=== PATIENT | male | born 1995 | race Caucasian/White ===

== ENCOUNTER 2018-03-18 18:42 | Emergency (ER) | payer BC ==
[2018-03-18] MEDS ORDERED: LIDOCAINE 1% 50 ML VIAL INJ ONE (18:44)
[2018-03-18] MEDS ORDERED: CHLORHEXIDINE GLUCONATE 4 % 15 ML UD TOP ONE (18:46)
[2018-03-18] MEDS ORDERED: NEOMYCIN-BACITRACIN-POLYMYXIN 0.9 GM UD TOP ONE (19:32)
--- NOTE | 2018-03-18 19:41 | RAD ---
EXAM DESCRIPTION: Thumb,Right CLINICAL HISTORY: 23 years Male, laceration COMPARISON: None. FINDINGS: No fracture or dislocation. Soft tissue irregularity/laceration with overlying bandage material. Electronically signed by: Juan Pastor MD 03/18/2018 7:40 PM CDT
--- NOTE | 2018-03-18 19:48 | ED.PDOC ---
History of Present Illness - General Chief Complaint: Laceration Stated Complaint: laceration thumb right Time Seen by Provider: 03/18/18 18:44 Source: patient - History of Present Illness Initial Comments: Gurwinder Samson 23 y/o male stated while doing work on his car his right hand slipped off and right thumb struck sharp oedge of metal that he was working on and causing laceration on his right thumb with pain and bleeding afterwards.His Tdap UTD-2017. Timing/Duration: just prior to arrival Severity: moderate Location: hands - right thumb Improving Factors: rest Worsening Factors: movement Associated Symptoms: other - Pain/bleeding wound Allergies/Adverse Reactions: Allergies NO KNOWN ALLERGY Allergy (Verified 03/18/18 19:01) Home Medications: Ambulatory Orders Cephalexin 1,000 mg PO BID 7 Days #30 cap 03/18/18 Review of Systems - Review of Systems Constitutional: States: no symptoms reported EENTM: States: no symptoms reported Respiratory: States: no symptoms reported Cardiology: States: no symptoms reported Gastrointestinal/Abdominal: States: no symptoms reported Genitourinary: States: no symptoms reported Skin: States: see HPI Past Medical History (General) - Patient Medical History Hx Stroke: No Hx Congestive Heart Failure: No Hx Diabetes: No Hx MRSA: No Surgical History: no surgical history - Vaccination History Hx Tetanus, Diphtheria Vaccination: Yes Hx Influenza Vaccination: No Hx Pneumococcal Vaccination: No Immunizations Up to Date: No - Social History Hx Tobacco Use: Yes Hx Chewing Tobacco Use: No Hx Alcohol Use: No Hx Substance Use: Yes - MJ Hx Substance Use Treatment: No Hx Depression: No Feels Threatened In Home Enviroment: No Feels Threatened In a Relationship: No Hx Physical Abuse: No Hx Emotional Abuse: No Hx Suspected Abuse: No - Activities of Daily Living Patient Lives Alone: No - Female History Patient is a Female of Child Bearing Age (10 -59 yrs old): No Patient : No - Triage Comment ED Triage Comment: laceration 2cm on finger. Wound is well approx. Family Medical History - Family History Mother Family History: Unknown Physical Exam - Physical Exam General Appearance: Alert, Comfortable, No apparent distress Eyes, Ears, Nose, Throat Exam: normal ENT inspection Neck: non-tender, supple Cardiovascular/Chest: normal peripheral pulses, regular rate, rhythm, no murmur Respiratory: chest non-tender, lungs clear, normal breath sounds Gastrointestinal/Abdominal: non tender, soft Back Exam: normal inspection Extremity: non-tender, normal inspection, no pedal edema, no calf tenderness Neurologic: alert, oriented x 3 Skin Exam: warm/dry, normal color Skin Problem Location: other - right thumb-ROM full; Neurovascular intact distally right thumb Skin Character: other - laceration Progress - Progress Progress: 03/18/18 19:51 Vital Signs - 8 hr 03/18/18 03/18/18 18:43 18:59 Pulse Rate [ 80 Apical] Respiratory 20 22 Rate Blood Pressure 132/75 [Left Arm] O2 Sat by Pulse 98 Oximetry - EKG/XRAY/CT CT Ordered: No CT Interpretation Call Back: No Procedures - Laceration/Wound Repair Right Dorsal Finger Wound Length (cm): 1.5 - right thummb Wound's Depth, Shape: flap - with tear aponeurotic layer-small Wound Explored: no foreign body removed Irrigated w/ Saline (cc's): 50 Betadine Prep?: No - hibiclens Anesthesia: 1% Lidocaine Volume Anesthetic (cc's): 5 Wound Repaired With: sutures Suture Size/Type: 4:0 Number of Sutures: 4 Layer Closure?: Yes - aponeurotic layer Deep Layer Suture Size/Type: 4:0, vicryl rapide Number Deep Layer Sutures: 2 Sterile Dressing Applied?: Yes Splint Applied?: Yes - thumb splint Departure - Departure Clinical Impression: Laceration of right thumb Qualifiers: Encounter type: initial encounter Damage to nail status: without damage Foreign body presence: without foreign body Qualified Code(s): S61.011A - Laceration without foreign body of right thumb without damage to nail, initial encounter Time of Disposition: 19:57 Disposition: Discharge to Home or Self Care Departure Forms: ED Discharge - Pt. Copy, Patient Portal Self Enrollment Instructions: DI for Laceration Repair -- Complex Suture, DI for Wound Infection Prescriptions: Cephalexin 1,000 mg PO BID 7 Days #30 cap Home Medications: Ambulatory Orders Cephalexin 1,000 mg PO BID 7 Days #30 cap 03/18/18 Additional Instructions: For removal of sutures 31 March 2018 with your primary Md in [place]
[2018-03-18] MEDS ORDERED: CEPHALEXIN MONOHYDRATE 500 MG CAP PO ONE (19:57)
[2018-03-18] MEDS ORDERED: HYDROCOD/APAP 7.5/325 (ER DISP) #3 TAB PO ONE (19:58)
[2018-03-18 20:04] VITALS: BP 118/59; TEMP 97.8; O2SAT 97
== END 2018-03-18 20:10 | disposition home or self-care (01) ==
LOC: ER 18:42
DX: S61.011A Laceration without foreign body of right thumb without damage to nail, initial encounter (principal); Z87.891 Personal history of nicotine dependence; W22.8XXA Striking against or struck by other objects, initial encounter; Y92.9 Unspecified place or not applicable